=== PATIENT | male | born 1940 | race Caucasian/White ===

== ENCOUNTER → 2016-05-12 | Outpatient (CLI) | payer OTHER ==
[~2016-05-12] MED LIST: ADULT LOW DOSE81 MG PO; ASPIRIN325 PO; FISHOIL PO; GLUCOPHAGE XR500 MG PO; LIPITOR80 MG PO; LISINOPRIL10 MG PO; MULTIPLE VITAM1 EAC3 PO; OSTERA TABLET1 EACH PO; PLAVIX 75 MG TA75 MG PO; TOPROL XL25 MG PO; UNICOMPLEX M TA1 TA1 PO
--- NOTE | ~2016-05-12 | 2DMMODE ---
[facility] [place] [address] 2 D/M-MODE ECHOCARDIOGRAM Name: NELLA BARRIOS Room #: REG CL [facility]#: [id number] Admission: 05/12/16 Attend Phys: Berto Reid MD Discharge: Date of : 40 Date of Service: 05/12/16 0908 Report #: [id number] THIS REPORT FOR: //name// Transthoracic Echocardiography Ordering physician: Berto Reid MD Referring physician: Nba Macias MD Utility Mechanic: KATE Sandoval Indications/History: CAD, HTN, DM, HLP. BP: 148 / HR: 57bpm Height: 70in Weight: 209.6lb 78 Study data: M-mode, complete 2D, complete spectral Doppler, and color Doppler. Location: Echo laboratory. Routine. Image quality was good. 2D measurements Normal Normal LVID ED 52.8mm 36-57 IVS ED 11.1mm 6-11 LVID ES 36.8mm 23-40 LVPW ED 12.9mm 6-11 LA volume 47ml/m2 16-28 AoRoot diam 27.6mm 21-37 index ED LVOT diameter 22mm 18-23 Findings: Left ventricle: The cavity size was normal. Wall thickness was at the upper limits of normal. Systolic function was normal. The estimated ejection fraction was in the range of 50% to 55%. Regional wall motion abnormalities: Hypokinesis of the apical inferior, apical septal, and apical myocardium. Right ventricle: The cavity size was at the upper limits of normal. Systolic function was normal. Right atrium: The atrium was at the upper limits of normal in size. Left atrium: The atrium was moderately dilated. Volume index: 47ml/m2 (S). [address] [address] 2 D/M-MODE ECHOCARDIOGRAM Name: NELLA BARRIOS Room #: REG [facility]#: [id number] Admission: 05/12/16 Attend Phys: Berto Reid MD Discharge: Date of : 40 Date of Service: 05/12/16 0908 Report #: [id number] Aortic valve: Trileaflet; mildly calcified leaflets. Doppler: There was no stenosis. No regurgitation. Peak velocity: 140cm/s (S). Mitral valve: Structurally normal valve. Doppler: There was no evidence for stenosis. Mild regurgitation. Peak E-wave velocity: 84.3cm/s. Peak gradient: 2.8mm Hg (D). Peak A-wave velocity: 106.4cm/s. Tricuspid valve: Structurally normal valve. Doppler: There was no evidence for stenosis. Trivial regurgitation. Pulmonic valve: Structurally normal valve. Doppler: There was no evidence for stenosis. No regurgitation. Pericardium: There was no pericardial effusion. Aorta: Aortic root: The aortic root was normal in size. Pulmonary artery: Pressure could not be reliably determined due to minimal or absent tricuspid insufficiency jet, but pulmonary hypertension was not suggested. Diastolic function: Doppler parameters are consistent with abnormal left ventricular relaxation (grade 1 diastolic dysfunction). Systemic veins: Inferior vena cava: The vessel was normal in size; the respirophasic diameter changes were in the normal range (= 50%). Conclusions 1. Left ventricle: The cavity size was normal. Wall thickness was at the upper limits of normal. Systolic function was normal. The estimated ejection fraction was in the range of 50% to 55%. 2. Regional wall motion abnormality: Hypokinesis of the apical inferior, apical septal, and apical myocardium. 3. Right atrium: The atrium was at the upper limits of normal in size. 4. Left atrium: The atrium was moderately dilated. 5. Aortic valve: Trileaflet; mildly calcified leaflets. There was no stenosis. 6. Mitral valve: Mild regurgitation. <ELECTRONICALLY SIGNED> By: Berto Reid MD 05/12/16 1016 0908 1016 Berto Reid MD /niya
== END ==
LOC: CV 08:24
DX: I25.10 Atherosclerotic heart disease of native coronary artery without angina pectoris (principal); I10 Essential (primary) hypertension; E11.9 Type 2 diabetes mellitus without complications; E78.5 Hyperlipidemia, unspecified

== ENCOUNTER → 2016-11-10 | Outpatient (CLI) | payer OTHER | LOC: ULTRA 08:34 | DX: I65.23 Occlusion and stenosis of bilateral carotid arteries (principal); I77.9 Disorder of arteries and arterioles, unspecified ==

== ENCOUNTER → 2017-05-22 | Outpatient (CLI) | payer OTHER | LOC: NUC 07:40 | DX: I25.10 Atherosclerotic heart disease of native coronary artery without angina pectoris (principal); I10 Essential (primary) hypertension; E78.5 Hyperlipidemia, unspecified; E11.9 Type 2 diabetes mellitus without complications ==

== ENCOUNTER → 2018-05-07 | Outpatient (CLI) | payer OTHER ==
--- NOTE | 2018-05-07 12:46 | 2DMMODE ---
[facility] [place] [place] [address] 2 D/M-MODE ECHOCARDIOGRAM Name: NELLA BARRIOS Room #: REG [facility]#: [id number] Admission: 05/07/18 Attend Phys: Berto Reid MD Discharge: Date of : 40 Date of Service: 05/07/18 1245 Report #: [id number] THIS REPORT FOR: //name// APPROVED REPORT Study performed: 05/07/2018 11:18:09 EXAM: Comprehensive 2D, Doppler, and color-flow Echocardiogram Patient Location: Out-Patient Room #: Echo lab 2 Status: l BSA: 2.18 HR: 58 bpm BP: 168/82 mmHg Rhythm: Bradycardia Other Information Study Quality: Adequate Indications CAD Hypertension/HDD 2D Dimensions RVDd: 39.50 mm IVSd: 10.86 (7-11mm) LVOT Diam: 23.89 (18-24mm) LVDd: 51.80 mm PWd: 10.08 (7-11mm) Ascending Ao: 34.14 (22-36mm) LVDs: 38.40 (25-40mm) Aortic Root: 29.81 mm IVC: 20.00 mm Volumes Left Atrial Volume (Systole) Single Plane 4CH: 67.79 mL Single Plane 2CH: 116.20 mL LA ESV Index: 46.00 mL/m2 Aortic Valve AoV Peak Richi.: 1.72 m/s AO Peak Gr.: 11.78 mmHg LVOT Max P.46 mmHg LVOT Max V: 0.93 m/s AVANI Vmax: 2.43 cm2 Mitral Valve E/A Ratio: 1.2 MV Decel. Time: 215.90 ms [facility] [place] [address] [address] [place] [address] 2 D/M-MODE ECHOCARDIOGRAM Name: NELLA BARRIOS Room #: REG [facility]#: [id number] Admission: 05/07/18 Attend Phys: Berto Reid MD Discharge: Date of : 40 Date of Service: 05/07/18 1245 Report #: [id number] MV E Max Richi.: 0.97 m/s MV A Richi.: 0.81 m/s MV PHT: 62.61 ms IVRT: 166.09 ms Pulmonary Valve PV Peak Richi.: 0.89 m/s PV Peak Gr.: 3.18 mmHg Pulmonary Vein P Vein S: 0.73 m/s P Vein A: 0.30 m/s P Vein D: 0.50 m/s P Vein A Dur.: 129.2 msec P Vein S/D Ratio: 1.46 Left Ventricle The left ventricle is normal size. There is hypokinesis in the apical septal wall. There is normal left ventricular wall thickness. The overall left ventricular systolic function appears normal. LVEF is 50-55%. Grade II - pseudonormal filling dynamics. Right Ventricle The right ventricle is normal size. The right ventricular systolic function is normal. Atria Left atrium is moderately dilated. Right atrium is dilated. Aortic Valve The aortic valve is normal in structure. Aortic valve is calcified. No aortic regurgitation is present. There is no aortic valvular stenosis. Mitral Valve The mitral valve is normal in structure. Trace to mild mitral regurgitation. No evidence of mitral valve stenosis. Tricuspid Valve The tricuspid valve is normal in structure. There is no tricuspid valve regurgitation noted. Pulmonic Valve The pulmonary valve is normal in structure. Trace pulmonic regurgitation. Great Vessels The aortic root is normal in size. IVC is dilated and collapses >50% with inspiration. [facility] [address] [place] [address] 2 D/M-MODE ECHOCARDIOGRAM Name: NELLA BARRIOS MADISYN Room #: REG CL [facility]#: [id number] Admission: 05/07/18 Attend Phys: Berto Reid MD Discharge: Date of : 40 Date of Service: 05/07/18 1245 Report #: [id number] Pericardium There is no pericardial effusion. <Conclusion> The left ventricle is normal size. The overall left ventricular systolic function appears normal. There is hypokinesis in the apical septal wall. Grade II - pseudonormal filling dynamics. The right ventricle is normal size. Left atrium is moderately dilated. The aortic valve is normal in structure. Aortic valve is calcified. Trace to mild mitral regurgitation. <ELECTRONICALLY SIGNED> By: Berto Reid MD 05/07/18 1245 1245 1245 Berto Reid MD /INF
== END ==
LOC: CV 10:17
DX: I35.8 Other nonrheumatic aortic valve disorders (principal); I10 Essential (primary) hypertension; I25.10 Atherosclerotic heart disease of native coronary artery without angina pectoris

== ENCOUNTER → 2019-04-29 | Outpatient (CLI) | payer OTHER | LOC: NUC 08:16 | DX: I25.10 Atherosclerotic heart disease of native coronary artery without angina pectoris (principal); E78.5 Hyperlipidemia, unspecified; I10 Essential (primary) hypertension; E11.9 Type 2 diabetes mellitus without complications; Z87.891 Personal history of nicotine dependence ==

== ENCOUNTER → 2019-06-24 | Outpatient (CLI) | payer OTHER | LOC: SJCVCIMAG 13:23 | DX: I08.3 Combined rheumatic disorders of mitral, aortic and tricuspid valves (principal); I11.9 Hypertensive heart disease without heart failure; I25.10 Atherosclerotic heart disease of native coronary artery without angina pectoris; I42.9 Cardiomyopathy, unspecified; E78.00 Pure hypercholesterolemia, unspecified; R60.9 Edema, unspecified; I25.2 Old myocardial infarction; Z79.82 Long term (current) use of aspirin; Z79.899 Other long term (current) drug therapy; Z82.49 Family history of ischemic heart disease and other diseases of the circulatory system; Z87.891 Personal history of nicotine dependence ==

== ENCOUNTER → 2019-12-25 | Outpatient (CLI) | payer OTHER | LOC: SJCVC 12:47 | PROVIDERS: ATTEND Internal Medicine Cardiovascular Disease | DX: I25.10 Atherosclerotic heart disease of native coronary artery without angina pectoris (principal); R94.31 Abnormal electrocardiogram [ECG] [EKG]; I49.1 Atrial premature depolarization; I10 Essential (primary) hypertension; E78.00 Pure hypercholesterolemia, unspecified; Z95.5 Presence of coronary angioplasty implant and graft; Z79.899 Other long term (current) drug therapy; Z87.891 Personal history of nicotine dependence ==

== ENCOUNTER → 2020-07-01 | Outpatient (CLI) | payer OTHER | LOC: SJCVC 09:20 | PROVIDERS: ATTEND Internal Medicine Cardiovascular Disease | DX: R00.1 Bradycardia, unspecified (principal); R94.31 Abnormal electrocardiogram [ECG] [EKG]; I25.10 Atherosclerotic heart disease of native coronary artery without angina pectoris; I10 Essential (primary) hypertension; E78.00 Pure hypercholesterolemia, unspecified; R60.9 Edema, unspecified; Z79.82 Long term (current) use of aspirin; Z79.84 Long term (current) use of oral hypoglycemic drugs; Z79.899 Other long term (current) drug therapy; Z82.49 Family history of ischemic heart disease and other diseases of the circulatory system; Z87.891 Personal history of nicotine dependence ==

== ENCOUNTER → 2021-02-03 | Outpatient (CLI) | payer OTHER | LOC: SJCVCIMAG 01-06 07:57 | PROVIDERS: ATTEND Internal Medicine Cardiovascular Disease | DX: R94.31 Abnormal electrocardiogram [ECG] [EKG] (principal); I08.3 Combined rheumatic disorders of mitral, aortic and tricuspid valves; I10 Essential (primary) hypertension; E78.2 Mixed hyperlipidemia; I25.10 Atherosclerotic heart disease of native coronary artery without angina pectoris; I65.23 Occlusion and stenosis of bilateral carotid arteries; E78.00 Pure hypercholesterolemia, unspecified; R60.9 Edema, unspecified; E11.9 Type 2 diabetes mellitus without complications; Z79.82 Long term (current) use of aspirin; Z79.84 Long term (current) use of oral hypoglycemic drugs; Z79.899 Other long term (current) drug therapy; Z87.891 Personal history of nicotine dependence; Z82.49 Family history of ischemic heart disease and other diseases of the circulatory system ==

== ENCOUNTER → 2021-02-24 | Outpatient (CLI) | payer OTHER | LOC: SJCVC 08:20 | PROVIDERS: ATTEND Internal Medicine Cardiovascular Disease | DX: I25.10 Atherosclerotic heart disease of native coronary artery without angina pectoris (principal); E78.00 Pure hypercholesterolemia, unspecified; R60.9 Edema, unspecified; E11.9 Type 2 diabetes mellitus without complications; I10 Essential (primary) hypertension; I25.5 Ischemic cardiomyopathy; E78.2 Mixed hyperlipidemia; Z95.5 Presence of coronary angioplasty implant and graft; Z68.30 Body mass index [BMI] 30.0-30.9, adult; Z79.84 Long term (current) use of oral hypoglycemic drugs; Z79.899 Other long term (current) drug therapy ==